=== PATIENT | male | born 1975 | race Caucasian/White ===

== ENCOUNTER 2021-09-12 13:14 | Inpatient (IN) ==
[2021-09-12] MEDS ORDERED: IOPAMIDOL 100 ML BOTTLE IV ONE (13:15)
[2021-09-12] MEDS ORDERED: ONDANSETRON 4 MG/2 ML VIAL IV ONE ×2 (13:20→16:55)
[2021-09-12] MEDS ORDERED: LACTATED RINGERS 1,000 ML IV ONE ×2 (13:20→14:06)
[2021-09-12] MEDS ORDERED: PROMETHAZINE 25 MG/ML VIAL IV ONE (13:28)
[2021-09-12] MEDS ORDERED: diphenhydrAMINE 50 MG/ML VIAL IV ONE (13:28)
[2021-09-12] MEDS ORDERED: HYDROmorphone 0.5 MG/0.5 ML SYRINGE IV ONE (13:28)
--- NOTE | 2021-09-12 13:34 | Emergency Department Note ---
Abdominal Pain HPI General Chief Complaint: Abdominal Pain Stated Complaint: crohns disease Time Seen by Provider: 09/12/21 13:19 Mode of arrival: wheelchair History of Present Illness HPI Narrative: Narrative: 46-year-old male with a history of type 1 diabetes, gastroparesis, Crohn's disease presents to the emergency department with chief complaint of lower abd ominal pain, nausea and vomiting. Patient reports that he has been having abdominal pain for about 6 days nausea and vomiting for a couple. He denies any fevers or chills. He feels like it is his gastroparesis. He has previously seen a cardiology specialist and been diagnosed with Crohn's but denies being on any medications for his Crohn's disease. No prior abdominal surgeries. He has an insulin pump. He takes Zofran as needed but has not had improvement in his symptoms. Related Data Home Medications Medication Instructions Recorded Confirmed insulin aspart U-100 100 unit/mL 10/19/20 10/19/20 subcutaneous solution (Novolog U-100 Insulin aspart) ondansetron 4 mg disintegrating 4 mg translingual Q4 10/19/20 09/12/21 tablet Allergies Allergy/AdvReac Type Severity Reaction Status Date / Time metoclopramide [From Reglan] AdvReac Mild Unknown Verified 09/12/21 19:36 haloperidol [From Haldol] AdvReac Unknown Verified 09/12/21 19:36 Review of Systems ROS ROS Narrative: Narrative: All systems ED: reviewed and negative except as stated. [facility] Narrative Patient History Narrative: Narrative: Medical/Surgical/Family History All Active Problems (Updated 09/13/21 @ 23:02 by Conor Jin MD) COVID-19 (Acute) Diabetic gastroparesis (Acute) Chronic insomnia (Acute) Diabetic gastroparesis (Acute) Patient's noncompliance with other medical treatment and regimen (Acute) census taker current use of insulin (Acute) Chronic depression (Acute) Type 1 diabetes mellitus with diabetic polyneuropathy (Acute) Other fracture of fifth metacarpal bone, left hand, initial encounter for closed fracture (Acute) Diabetes mellitus type 1, uncontrolled (Acute) Type 1 diabetes mellitus with other circulatory complications (Acute) Pneumonitis due to inhalation of oils and essences (Acute) Medical History Chronic depression Chronic insomnia Diabetes mellitus type 1, uncontrolled Diabetic gastroparesis care home current use of insulin Other fracture of fifth metacarpal bone, left hand, initial encounter for closed fracture Patient's noncompliance with other medical treatment and regimen Pneumonitis due to inhalation of oils and essences Type 1 diabetes mellitus with diabetic polyneuropathy Type 1 diabetes mellitus with other circulatory complications Social History Smoking Status: Never smoker Exam Narrative Narrative: Narrative: Vital signs noted General: Awake. Alert. Mild distress actively vomiting HEENT: NCAT PERRL EOMI. No conjunctivitis. Membranes moist. Neck: Supple, trachea midline Cardiovascular: RRR. No murmur. No rubs. No gallops. Respiratory: No respiratory distress. Breath sounds equal. Lungs clear. Gastrointestinal: Soft. Tenderness to palpation in the lower abdominal quadrants there is no guarding rigidity or peritoneal signs Musculoskeletal: No pain. No soft tissue swelling. Good ROM. No signs injury Skin: Warm. Dry. No rash Neurologic: Alert and oriented x3 moves all extremities equally and fully, speech is fluent face is symmetric Course Vital Signs Vital signs: Vital Signs Temperature 96.8 F L 09/12/21 13:16 Pulse Rate 94 H 09/12/21 13:16 Respiratory Rate 20 09/12/21 13:16 Blood Pressure 165/101 09/12/21 13:16 Pulse Oximetry (%) 100 09/12/21 13:16 Oxygen Delivery Method 09/12/21 13:16 Temperature 98.5 F 09/13/21 18:49 Pulse Rate 105 H 09/13/21 18:49 Respiratory Rate 24 H 09/13/21 18:49 Blood Pressure 111/65 09/13/21 18:49 Pulse Oximetry (%) 90 09/13/21 18:49 Oxygen Delivery Method 09/13/21 18:49 [facility] MDM Narrative Medical decision making narrative: Narrative: 46-year-old male with a history of type 1 diabetes and Crohn's disease presents with abdominal pain. While in the emergency department the patient had multiple bouts of nonbloody nonbilious emesis. Patient reports his symptoms today seem consistent with his gastroparesis. CT scan was obtained which shows diffuse abnormality of the colon and terminal ileum consistent with inflammatory bowel disease. Patient's abdominal pain is actually relatively mild it is mostly his intractable nausea and vomiting. Patient was given Zofran x2, Phenergan, Benadryl, Dilaudid, Ativan without any improvement in his symptoms. He continues to retch, dry heave and intermittently vomit while in the emergency department. Patient was given 2 L of IV fluids. His labs show on the venous blood gas and alkalosis suggesting that his vomiting is his primary issue there is not appear to be evidence of DKA patient's bicarb is 21 he does have some ketones. His blood glucose has been in the high 200s while here in the emergency department. Lab Data Result diagrams: 09/12/21 13:31 09/13/21 05:42 Labs: Lab Results 09/12/21 09/12/21 09/12/21 Range/Units 13:31 13:31 13:31 WBC 11.2 H (4.5-11.0) K/mcL RBC 5.42 (4.63-6.08) M/mcL Hgb 15.4 (13.7-17.5) g/dL Hct 46.0 (40.1-51.0) % POC Hct (41-55) MCV 84.9 (80.0-100.0) fL MCH 28.4 (26.0-34.0) pg MCHC 33.5 (31.0-36.0) g/dL RDW 12.6 (11.5-14.5) % Plt Count 300 (140-440) K/mcL MPV 12.4 H (7.4-10.4) fL Immature Gran % (Auto) 0.2 (0.0-0.5) % Neut % (Auto) 71.6 (38.0-78.0) % Lymph % (Auto) 20.4 (15.5-49.0) % [place] % (Auto) 6.6 (1.0-12.0) % Eos % (Auto) 0.6 (0.0-7.0) % Baso % (Auto) 0.6 (0.0-2.0) % Lymph # (Auto) 2.28 (1.50-4.80) K/mcL [place] # (Auto) 0.74 (0.10-0.90) K/mcL Eos # (Auto) 0.07 (0.00-0.70) K/mcL Baso # (Auto) 0.07 (0.00-0.30) K/mcL Immature Gran # 0.02 (0.00-0.05) K/mcl Absolute Neutrophils 8.00 (1.80-8.00) K/mcL ABG Methemoglobin (0.4-1.5) % VBG pH (7.32-7.42) U VBG pCO2 (41.0-51.0) mmHg VBG pO2 (25.0-40.0) mmHg VBG HCO3 (24.0-28.0) mmol/L VBG Total CO2 (25.0-29.0) mmol/L VBG O2 Saturation (40.0-70.0) % VBG Base Excess (-2-3) Carboxyhemoglobin (0.0-1.5) % THgb Total Hemoglobin (13.5-16.5) gm/Dl POC Sodium (133-145) POC Potassium (3.3-5.1) POC Chloride (96-108) POC Total CO2 (22-30) POC BUN (6-20) POC Creatinine (0.6-1.2) POC Glucose (70-105) POC WB Ioniz Calcium (1.16-1.32) Total Bilirubin 0.5 (0.1-1.0) mg/dL Direct Bilirubin < 0.2 (0-0.3) mg/dL AST 21 (<40) U/L ALT 15 (<40) U/L Alkaline Phosphatase 94 (39-117) U/L Total Protein 7.8 (5.9-8.4) gm/dL Albumin 4.5 (3.2-5.2) gm/dL Globulin 3.3 (2.2-3.7) gm/dL Lipase 13 (7-60) U/L Beta-Hydroxybutyrate 0.63 H (<0.27) mmol/L 09/12/21 09/12/21 Range/Units 13:31 13:35 WBC (4.5-11.0) K/mcL RBC (4.63-6.08) M/mcL Hgb (13.7-17.5) g/dL Hct (40.1-51.0) % POC Hct 48.0 (41-55) MCV (80.0-100.0) fL MCH (26.0-34.0) pg MCHC (31.0-36.0) g/dL RDW (11.5-14.5) % Plt Count (140-440) K/mcL MPV (7.4-10.4) fL Immature Gran % (Auto) (0.0-0.5) % Neut % (Auto) (38.0-78.0) % Lymph % (Auto) (15.5-49.0) % [place] % (Auto) (1.0-12.0) % Eos % (Auto) (0.0-7.0) % Baso % (Auto) (0.0-2.0) % Lymph # (Auto) (1.50-4.80) K/mcL [place] # (Auto) (0.10-0.90) K/mcL Eos # (Auto) (0.00-0.70) K/mcL Baso # (Auto) (0.00-0.30) K/mcL Immature Gran # (0.00-0.05) K/mcl Absolute Neutrophils (1.80-8.00) K/mcL ABG Methemoglobin 0.2 L (0.4-1.5) % VBG pH 7.53 H (7.32-7.42) U VBG pCO2 28.3 L (41.0-51.0) mmHg VBG pO2 38.3 (25.0-40.0) mmHg VBG HCO3 23.1 L (24.0-28.0) mmol/L VBG Total CO2 23.9 L (25.0-29.0) mmol/L VBG O2 Saturation 78.1 H (40.0-70.0) % VBG Base Excess 2 (-2-3) Carboxyhemoglobin 4.7 H (0.0-1.5) % THgb Total Hemoglobin 16.6 H (13.5-16.5) gm/Dl POC Sodium 138 (133-145) POC Potassium 4.0 (3.3-5.1) POC Chloride 103 (96-108) POC Total CO2 21.0 L (22-30) POC BUN 17 (6-20) POC Creatinine 1.1 (0.6-1.2) POC Glucose 237 H (70-105) POC WB Ioniz Calcium 1.08 L (1.16-1.32) Total Bilirubin (0.1-1.0) mg/dL Direct Bilirubin (0-0.3) mg/dL AST (<40) U/L ALT (<40) U/L Alkaline Phosphatase (39-117) U/L Total Protein (5.9-8.4) gm/dL Albumin (3.2-5.2) gm/dL Globulin (2.2-3.7) gm/dL Lipase (7-60) U/L Beta-Hydroxybutyrate (<0.27) mmol/L EKG Data EKG #1: EKG attestation: Yes I reviewed and interpreted this EKG., Yes There are no EKG findings of acute coronary syndrome and Yes This EKG will be read by dry transfer worker EKG results narrative: EKG shows sinus arrhythmia with a rate of 88, QTc is 466 no evidence of acute ischemia Discharge Plan Patient/Caregiver Discharge Instructions Pt seen by TESTER ROCKET ENGINE/PA only: No Clinical Impression: Diabetic gastroparesis Patient Disposition: Xfer As Outpt/Obs ([facility]) Condition: Fair Discharge Date/Time: 09/12/21 19:00
[2021-09-12 13:38] LABS: POC Calcium, Ionized 1.08 (1.16-1.32); POC Creatinine 1.1 (0.6-1.2)
[2021-09-12 14:00] LABS: ABG Methemoglobin 0.2 % (0.4-1.5); Total Hemoglobin 16.6 gm/Dl (13.5-16.5); VBG Base Excess 2 (-2-3); VBG HCO3 23.1 mmol/L (24.0-28.0); VBG Oxygen Saturation 78.1 % (40.0-70.0); VBG PCO2 28.3 mmHg (41.0-51.0); VBG PH 7.53 U (7.32-7.42); VBG PO2 38.3 mmHg (25.0-40.0); VBG Total CO2 23.9 mmol/L (25.0-29.0)
[2021-09-12 14:08] LABS: Basophils # (Auto) 0.07 K/mcL (0.00-0.30); Basophils % (Auto) 0.6 % (0.0-2.0); Eosinophils # (Auto) 0.07 K/mcL (0.00-0.70); Eosinophils % (Auto) 0.6 % (0.0-7.0); Hemoglobin 15.4 g/dL (13.7-17.5); Lymphocytes # (Auto) 2.28 K/mcL (1.50-4.80); Lymphocytes % (Auto) 20.4 % (15.5-49.0); Mean Cell Volume 84.9 fL (80.0-100.0); Mean Corpuscular HGB Conc 33.5 g/dL (31.0-36.0); Mean Platelet Volume 12.4 fL (7.4-10.4); Monocytes # (Auto) 0.74 K/mcL (0.10-0.90); Monocytes % (Auto) 6.6 % (1.0-12.0); Neutrophils % (Auto) 71.6 % (38.0-78.0); Platelet Count 300 K/mcL (140-440); RBC 5.42 M/mcL (4.63-6.08); Red Cell Distribution Width 12.6 % (11.5-14.5); WBC 11.2 K/mcL (4.5-11.0)
[2021-09-12 14:47] LABS: Beta Hydroxybutyrate 0.63 mmol/L (<0.27)
[2021-09-12] MEDS ORDERED: LORazepam 2 MG/ML VIAL IV ONE (14:51)
--- NOTE | 2021-09-12 14:57 | Cat Scan Report ---
INDICATION: N/v lower abd pain, hx of crohns COMPARISON: None. TECHNIQUE: Axial images were obtained through the abdomen and pelvis. Sagittally and coronally reformatted images. 80 mL Isovue 370 injected intravenously. Oral contrast material was not administered FINDINGS: Lung bases:Negative. No pulmonary parenchymal nodule. No pleural fluid or pericardial fluid. There appears to be a central venous catheter with its tip in the proximal right atrium. There is coronary artery calcification. This is advanced for age. Liver:Negative. No focal intrahepatic mass. No focal abnormality. Liver contour is smooth. No evidence for cirrhosis Gallbladder, bilary:No calcified gallstones. No gallbladder wall thickening. No dilated intra or extrahepatic bile ducts. Spleen:No splenomegaly. Normal enhancement of splenic and portal veins. Pancreas:Pancreas appears atrophic. No pancreatic mass or evidence for pancreatitis Adrenal glands:Negative Kidneys,ureters,bladder:No solid renal mass. No hydronephrosis. No obstructing or nonobstructing calculi. 7 mm low-density abnormality in the inferior pole of the left kidney. May be a benign cyst although there may be some internal structure. Ultrasound or follow-up CT scan recommended to exclude a small solid lesion No hydroureter. No ureteral calculus. No bladder stone. No detectable bladder mass. Gastrointestinal:Colon is diffusely abnormal. There is mild mural enhancement and mucosal edema. There is prominent vasa recta with increased vascularity to the colon. No colonic stricture or mass identified. This patient has a history of Crohn's disease and the appearance of the colon is consistent with inflammatory bowel disease. There is mucosal edema within the terminal ileum. This is consistent with Crohn's disease. Small bowel is otherwise negative. There is no bowel obstruction. No evidence for fistula or mass Negative stomach and duodenum. No focal abnormality. There is a small hiatal hernia Appendix: The appendix is negative Vascular:There is calcification of the abdominal aorta. This is considered advanced for age. No abdominal aortic aneurysm. Lymphatic:No retroperitoneal or mesenteric adenopathy Mesentery, peritoneum: No free intraperitoneal fluid. No mesenteric or retroperitoneal mass. No intra-abdominal abscess. Reproductive:Prostate is not enlarged. There is calcification within the seminal vesicles and proximal spermatic cord Musculoskeletal:No lumbar compression fractures. Sacrum and pelvis are negative. No hip fracture. No abdominal wall or inguinal hernia IMPRESSION: 1. Diffuse abnormality of the colon and terminal ileum. There is mucosal edema and hyperemia. Appearance is consistent with inflammatory bowel disease 2. No stricture or mass. 3. Atherosclerotic disease is advanced for age 4. Small hiatal hernia The exam was performed using radiation dose optimization techniques including, but not limited to, automated exposure control, adjustment of the mA and/or kV according to patient size and use of iterative reconstruction technique. Interpreted and Authenticated by: Nathan Fragoso 09/12/21
[2021-09-12 16:39] LABS: ALT/SGPT 15 U/L (<40); AST/SGOT 21 U/L (<40); Albumin 4.5 gm/dL (3.2-5.2); Alkaline Phosphatase 94 U/L (39-117); Bilirubin,Direct < 0.2 mg/dL (0-0.3); Bilirubin,Total 0.5 mg/dL (0.1-1.0); Globulin 3.3 gm/dL (2.2-3.7)
--- NOTE | 2021-09-12 17:47 | Internal Med History&Physical ---
HPI History of Present Illness Patient information: Note initiated : 09/12/21 at 5:43 pm Service Date, if different from initiated Date: [as above] Patient: Zana Alex a 46 y/o M admitted on for crohns disease. Chief Complaint: [Intractable nausea and vomiting] Chief complaint: Intractable nausea and vomiting History of present illness: Mr. Alex is a 46 year old M with a past medical history significant for type 1 diabetes mellitus complicated by gastroparesis who presents to the hospital with intractable nausea and vomiting for several days. Of note, the patient does have a insulin pump that has been in place for nearly 2 years. He is followed by Dr. Diaz. The patient did not eat anything unusual recently. He was quite somnolent when I was at the bedside. History is mainly obtained secondhand from his family. They state that he has been unable to eat or drink and they brought him into the hospital as he was having severe retching episodes. On arrival, he was hemodynamically stable and afebrile. Upon review of his labs, there is no evidence of severe electrolyte derangements or acute kidney injury. His nausea cannot be controlled while in the ER, and the hospital service was asked admit the patient for further management and evaluation. Review of Systems All systems: reviewed and no additional remarkable complaints except as stated Constitutional Constitutional: Present as per HPI EENT Eyes: Present as per HPI; Absent blurry vision Cardiovascular Cardiovascular: Present as per HPI; Absent chest pain, dyspnea, dyspnea on exertion, leg edema or palpatations Respiratory Respiratory: Present as per HPI; Absent cough, dyspnea, dyspnea on exertion, wheezing or stridor Gastrointestinal Gastrointestinal: Present as per HPI, nausea and vomiting; Absent abdominal pain, diarrhea, dysphagia, hematemesis or melena Musculoskeletal Musculoskeletal: Present as per HPI; Absent joint swelling, limited range of motion, muscle cramps, muscle weakness or myalgias Integumentary Integumentary: Present as per HPI; Absent erythema, new lesions, rash or wounds Neurological Neurological: Present as per HPI; Absent abnormal gait, behavioral changes, focal weakness, headache(s), loss of vision, numbness, sensory deficit or syncope Endocrine Endocrine: Absent change in body appearance, fatigue or heat intolerance Hematologic/Lymphatic Hematologic/Lymphatic: Present as per HPI PFSH PFSH All Active Problems (System 09/12/21 @ 13:25 by Kenan Ziegler) COVID-19 (Acute) Diabetic gastroparesis (Acute) Chronic insomnia (Acute) Diabetic gastroparesis (Acute) Patient's noncompliance with other medical treatment and regimen (Acute) 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 (Acute) Chronic depression (Acute) Type 1 diabetes mellitus with diabetic polyneuropathy (Acute) Other fracture of fifth metacarpal bone, left hand, initial encounter for closed fracture (Acute) Diabetes mellitus type 1, uncontrolled (Acute) Type 1 diabetes mellitus with other circulatory complications (Acute) Pneumonitis due to inhalation of oils and essences (Acute) Medical History Chronic depression Chronic insomnia Diabetes mellitus type 1, uncontrolled Diabetic gastroparesis detention current use of insulin Other fracture of fifth metacarpal bone, left hand, initial encounter for closed fracture Patient's noncompliance with other medical treatment and regimen Pneumonitis due to inhalation of oils and essences Type 1 diabetes mellitus with diabetic polyneuropathy Type 1 diabetes mellitus with other circulatory complications MEDS/ALLERGIES Home Medications and Allergies Home Medications Medication Instructions Recorded Confirmed Type insulin aspart U-100 100 unit/mL 10/19/20 10/19/20 History subcutaneous solution (Novolog U-100 Insulin aspart) ondansetron 4 mg disintegrating 4 mg PO Q8H PRN nausea and 10/19/20 Rx tablet vomiting #10 tabs ondansetron 4 mg disintegrating 4 mg translingual Q4 10/19/20 10/19/20 History tablet promethazine 25 mg rectal 25 mg CO Q6H PRN nausea/vomiting 10/19/20 10/19/20 History suppository metoclopramide HCl 10 mg tablet 10 mg PO Q6H PRN nausea and 04/16/21 Rx (Reglan) vomiting #14 tabs Allergies Allergy/AdvReac Type Severity Reaction Status Date / Time haloperidol [From Haldol] Allergy Unknown Verified 09/12/21 13:25 metoclopramide [From Reglan] Allergy Unknown Verified 09/12/21 13:25 EXAM Constitutional Vitals: Temp Pulse Resp BP Pulse Ox O2 Del Method 96.8 F L 97 H 20 164/86 100 09/12/21 13:16 09/12/21 17:04 09/12/21 17:04 09/12/21 17:04 09/12/21 17:04 09/12/21 17:04 General appearance: average body habitus Head Head exam: Present atraumatic, normal inspection and normocephalic Eye Eye exam: Present EOMI, normal appearance and PERRL; Absent conjunctival injection ENT ENT exam: Present mucous membranes dry and normal exam Neck Neck exam: Present full ROM; Absent lymphadenopathy Respiratory Respiratory exam: Present normal respiratory exam and CTAB; Absent decreased breath sounds, respiratory distress or wheezes Cardiovascular Cardiovascular exam: Present normal rate and rhythm and RRR; Absent JVD GI/Abdominal GI/Abdominal exam: Present normal bowel sounds and soft; Absent diminished bowel sounds, distended, guarding, mass, rebound or tenderness Neurological Exam Neurological exam: Present alert, CN II-XII intact and oriented X3 Psychiatric Psychiatric exam: Present normal affect and normal mood Skin Skin exam: Present intact and warm; Absent erythema, pallor, petechiae or rash DATA Data Completed and Pending Labs: Labs from last 24 hours 09/12/21 09/12/21 09/12/21 13:35 13:31 13:31 WBC RBC Hgb Hct POC Hct 48.0 MCV MCH MCHC RDW Plt Count MPV Immature Gran % (Auto) Neut % (Auto) Lymph % (Auto) [place] % (Auto) Eos % (Auto) Baso % (Auto) Lymph # (Auto) [place] # (Auto) Eos # (Auto) Baso # (Auto) Immature Gran # Absolute Neutrophils ABG Methemoglobin 0.2 L VBG pH 7.53 H VBG pCO2 28.3 L VBG pO2 38.3 VBG HCO3 23.1 L VBG Total CO2 23.9 L VBG O2 Saturation 78.1 H VBG Base Excess 2 Carboxyhemoglobin 4.7 H Total Hemoglobin 16.6 H POC Sodium 138 POC Potassium 4.0 POC Chloride 103 POC Total CO2 21.0 L POC BUN 17 POC Creatinine 1.1 POC Glucose 237 H POC WB Ioniz Calcium 1.08 L Total Bilirubin Direct Bilirubin AST ALT Alkaline Phosphatase Total Protein Albumin Globulin Lipase Beta-Hydroxybutyrate 0.63 H 09/12/21 09/12/21 13:31 13:31 WBC 11.2 H RBC 5.42 Hgb 15.4 Hct 46.0 POC Hct MCV 84.9 MCH 28.4 MCHC 33.5 RDW 12.6 Plt Count 300 MPV 12.4 H Immature Gran % (Auto) 0.2 Neut % (Auto) 71.6 Lymph % (Auto) 20.4 [place] % (Auto) 6.6 Eos % (Auto) 0.6 Baso % (Auto) 0.6 Lymph # (Auto) 2.28 [place] # (Auto) 0.74 Eos # (Auto) 0.07 Baso # (Auto) 0.07 Immature Gran # 0.02 Absolute Neutrophils 8.00 ABG Methemoglobin VBG pH VBG pCO2 VBG pO2 VBG HCO3 VBG Total CO2 VBG O2 Saturation VBG Base Excess Carboxyhemoglobin Total Hemoglobin POC Sodium POC Potassium POC Chloride POC Total CO2 POC BUN POC Creatinine POC Glucose POC WB Ioniz Calcium Total Bilirubin 0.5 Direct Bilirubin < 0.2 AST 21 ALT 15 Alkaline Phosphatase 94 Total Protein 7.8 Albumin 4.5 Globulin 3.3 Lipase 13 Beta-Hydroxybutyrate A/P Assessment and plan (1) Diabetic gastroparesis: Status: Acute (2) Type 1 diabetes mellitus with diabetic polyneuropathy: Status: Acute Narrative A/P Narrative: The patient is insulin-dependent, and we will have to continue his insulin pump for the time being. He may need to adjust the settings as we will keep him n.p.o. and continue LR 100 cc an hour. The patient will be prescribed IV Reglan, and IV Compazine. I do not believe we have domperidone or erythromycin on formulary. Continue conservative management. Time Spent With Patient Time: Total time spent is greater than 50% in coordination of care (as documented) at patient's floor/unit and/or counseling patient: Total time spent with greater than 50% in coordination of care (as documented) at patient's floor/unit and/or counseling patient:: 50 - 70 minutes
[2021-09-12] MEDS ORDERED: ONDANSETRON 4 MG/2 ML VIAL IV PRN (19:10)
[2021-09-12] MEDS ORDERED: PROCHLORPERAZINE 10 MG/2 ML VIAL IV PRN (19:10)
[2021-09-12] MEDS: LACTATED RINGERS 1,000 ML IV SCH (19:23)
[2021-09-12] MEDS: METOCLOPRAMIDE 10 MG/2 ML VIAL IV SCH ×2 (19:24→23:01)
[2021-09-12] MEDS ORDERED: METOCLOPRAMIDE 10 MG/2 ML VIAL ONE (19:24)
[2021-09-12] MEDS: SENNOSIDES 1 TABLET PO SCH (19:25)
[2021-09-12] MEDS: DOCUSATE SODIUM 100 MG CAPSULE PO SCH (19:25)
[2021-09-12 21:49] LABS: Appearance,Urine CLEAR (Clear); Bilirubin,Urine Negative (Negative); Color,Urine STRAW; Culture Indicated,Urine No; Glucose,Urine (UA) >=500 mg/dL (Negative); Ketones,Urine 80 mg/dL (Negative); Leukocyte Esterase,Urine Negative /uL (Negative); Nitrate,Urine Negative (Negative); Protein,Urine Negative (Negative); Urine Blood Negative (Negative); Urine RBC < 1 /hpf (0-3); Urine Squamous Epithelial Cell 0 /hpf (0-4); Urine WBC 1 /hpf (0-4); Urobilinogen,Urine Negative
[2021-09-12 22:03] LABS: Amphetamine Screen,Urine None detected; Barbiturate Screen,Urine None detected; Benzodiazepines Screen,Urine None detected; Cannabinoid Screen,Urine Suspect Positive; Cocaine Screen,Urine None detected; Opiate Screen,Urine None detected; Oxycodone, Urine Screen None detected; Phencyclidine Screen,Urine None detected
[2021-09-12] MEDS: 0.9 % SODIUM CHLORIDE 10 ML SYRINGE IV SCH (22:11)
[2021-09-12] MEDS: KETOROLAC 30 MG/ML VIAL IV PRN (22:19)
[2021-09-12] MEDS ORDERED: HALOPERIDOL LACTATE 5 MG/ML VIAL IV ONE (22:45)
[2021-09-12] MEDS: PROMETHAZINE 25 MG/ML VIAL IV PRN (23:01)
[2021-09-12] MEDS ORDERED: PROMETHAZINE 25 MG/ML VIAL ONE (23:03)
[2021-09-12] MEDS ORDERED: HALOPERIDOL LACTATE 5 MG/ML VIAL ONE (23:08)
[2021-09-13] MEDS: ONDANSETRON 4 MG/2 ML VIAL IV PRN (01:43)
[2021-09-13] MEDS ORDERED: ONDANSETRON 4 MG/2 ML VIAL ONE (01:49)
[2021-09-13] MEDS: KETOROLAC 30 MG/ML VIAL IV PRN ×3 (05:03→23:44)
[2021-09-13] MEDS: 0.9 % SODIUM CHLORIDE 10 ML SYRINGE IV SCH ×3 (05:04→22:44)
[2021-09-13] MEDS: LACTATED RINGERS 1,000 ML IV SCH ×2 (05:04→16:26)
[2021-09-13] MEDS: METOCLOPRAMIDE 10 MG/2 ML VIAL IV SCH ×4 (05:04→23:44)
[2021-09-13 07:48] LABS: Blood Urea Nitrogen 18 mg/dL (6-20); Calcium 9.3 mg/dL (8.6-10.4); Carbon Dioxide 16 mmol/L (22-30); Chloride 100 mmol/L (96-108); Glomerular Filtration Rate 72; Glucose 330 mg/dL (70-105); Phosphorous 3.3 mg/dL (2.5-4.5)
[2021-09-13] MEDS: DOCUSATE SODIUM 100 MG CAPSULE PO SCH ×2 (08:59→22:43)
[2021-09-13] MEDS: PROMETHAZINE 25 MG/ML VIAL IV PRN ×2 (10:09→16:32)
--- NOTE | 2021-09-13 10:16 | EKG ---
[facility] Test Date: 2021-09-12 Pat Name: Zana Alex Department: ED Room: Gender: Male Small Business Consultant: HS : [id number] Requested By: Conor Jin Order Number: [id number] Reading MD: Matthew Patiño Measurements Intervals [place] Rate: 88 P: 33 FL: 149 QRS: 33 QRSD: 163 T: 50 QT: 385 QTc: 466 Interpretive Statements Sinus arrhythmia Baseline wander Electronically Signed On 09-13-2021 10:16:20 PDT by Matthew Patiño /store/[email or web address]/[id number]
--- NOTE | 2021-09-13 11:23 | Internal Med Progress Note ---
SUBJECTIVE Subjective Patient information: Note initiated : 09/13/21 at 11:21 am Service Date, if different from initiated Date: [] Patient: Zana Alex 46 y/o M admitted on 09/12/21 for gastroparesis. Chief Complaint: [Intractable nausea and vomiting] Principal diagnosis: Diabetic gastroparesis Interval history: The patient was resting comfortably in bed. He is feeling much better. He has received multiple antiemetics and even Haldol IV. He would like to advance his diet to clear liquid. Constitutional Vitals: Vital Signs Temp Pulse Resp BP Pulse Ox O2 Del Method 99.0 F 111 H 16 154/83 95 09/13/21 07:41 09/13/21 07:41 09/13/21 07:41 09/13/21 07:41 09/13/21 07:41 09/13/21 07:41 Period Temp Pulse Resp BP Sys/Mercer Pulse Ox O2 Del Method O2 Flow Rate Last 24 Hr 96.8 F-99.0 F 89-113 16-20 92-165/49-101 92-100 Room Air-Room Air Intake and Output 09/12/21 09/13/21 09/13/21 21:59 05:59 13:59 Intake Total 1999 968 Output Total 400 Balance 1600 968 Weight 94.347 kg Intake & Output: Intake & Output 09/12/21 09/13/21 09/13/21 21:59 05:59 13:59 Intake Total 2000 968 Output Total 400 Balance 1600 968 Weight 94.347 kg Intake: IV 2000 968 Lactated Ringers 1,000 ml @ 100 2000 968 mls/hr IV .Q10H JOLIE Rx#: [id number] Oral 0 Output: Void Amount 400 Other: Urine Appearance Clear Urine Color Dark Yellow # Voids 1 Head Head exam: Present atraumatic and normal inspection Eye Eye exam: Present normal appearance ENT ENT exam: Present mucous membranes moist, normal exam and normal external ear exam Neck Neck exam: Present normal inspection Respiratory Respiratory exam: Present normal respiratory exam Cardiovascular Cardiovascular exam: Present normal rate and rhythm GI/Abdominal GI/Abdominal exam: Present normal bowel sounds Back Exam Back exam: Present normal inspection Neurological Exam Neurological exam: Present alert and oriented X3 Skin Skin exam: Present intact and warm OBJ DATA Labs CBC & Chem 7: 09/12/21 13:31 09/13/21 05:42 Labs: Abnormal Lab Results 09/13/21 09/12/21 09/12/21 05:42 21:00 21:00 WBC MPV ABG Methemoglobin VBG pH VBG pCO2 VBG HCO3 VBG Total CO2 VBG O2 Saturation Carboxyhemoglobin Total Hemoglobin Carbon Dioxide 16 L POC Total CO2 Anion Gap 21.0 H Glucose 330 H POC Glucose POC WB Ioniz Calcium Beta-Hydroxybutyrate Urine Glucose (UA) >=500 A Urine Ketones 80 A U Marijuana (THC) Screen Suspect positive A 09/12/21 09/12/21 09/12/21 13:35 13:31 13:31 WBC MPV ABG Methemoglobin 0.2 L VBG pH 7.53 H VBG pCO2 28.3 L VBG HCO3 23.1 L VBG Total CO2 23.9 L VBG O2 Saturation 78.1 H Carboxyhemoglobin 4.7 H Total Hemoglobin 16.6 H Carbon Dioxide POC Total CO2 21.0 L Anion Gap Glucose POC Glucose 237 H POC WB Ioniz Calcium 1.08 L Beta-Hydroxybutyrate 0.63 H Urine Glucose (UA) Urine Ketones U Marijuana (THC) Screen 09/12/21 13:31 WBC 11.2 H MPV 12.4 H ABG Methemoglobin VBG pH VBG pCO2 VBG HCO3 VBG Total CO2 VBG O2 Saturation Carboxyhemoglobin Total Hemoglobin Carbon Dioxide POC Total CO2 Anion Gap Glucose POC Glucose POC WB Ioniz Calcium Beta-Hydroxybutyrate Urine Glucose (UA) Urine Ketones U Marijuana (THC) Screen Meds: Medications Docusate Sodium (Docusate Sodium 100 Mg Capsule) 100 mg PO BID [facility] Last Admin: 09/13/21 08:59 Dose: Not Given Lactated Ringer's (Lactated Ringers) 1,000 mls @ 100 mls/hr IV .Q10H [facility] Last Admin: 09/13/21 05:04 Dose: 100 mls/hr Ketorolac Tromethamine (Ketorolac 30 Mg/Ml Vial) 30 mg IV Q6HP PRN; Protocol PRN Reason: Per Pain Protocol Stop: 09/14/21 17:34 Last Admin: 09/13/21 05:03 Dose: 30 mg Metoclopramide HCl (Metoclopramide 10 Mg/2 Ml Vial) 10 mg IV Q6 [facility] Last Admin: 09/13/21 05:04 Dose: 10 mg Ondansetron HCl (Ondansetron 4 Mg/2 Ml Vial) 8 mg IV Q6HP PRN PRN Reason: Nausea And Vomiting Last Admin: 09/13/21 01:43 Dose: 8 mg Prochlorperazine (Prochlorperazine 10 Mg/2 Ml Vial) 5 mg IV Q4HP PRN PRN Reason: Nausea And Vomiting Last Admin: 09/12/21 22:19 Dose: 5 mg Promethazine HCl (Promethazine 25 Mg/Ml Vial) 25 mg IV Q4HP PRN PRN Reason: Nausea And Vomiting Last Admin: 09/13/21 10:09 Dose: 25 mg Senna (Sennosides 1 Tablet) 2 tab PO HS JOLIE Last Admin: 09/12/21 19:25 Dose: Not Given Sodium Chloride (0.9 % Sodium Chloride 10 Ml Syringe) 10 ml IV Q8 JOLIE Last Admin: 09/13/21 05:04 Dose: Not Given ABG Interpretation ABG results: 09/12/21 13:31 ABG Methemoglobin 0.2 L VBG pH 7.53 H VBG pCO2 28.3 L VBG pO2 38.3 VBG HCO3 23.1 L VBG Total CO2 23.9 L VBG O2 Saturation 78.1 H VBG Base Excess 2 A/P Assessment and plan (1) Diabetic gastroparesis: Status: Acute (2) Type 1 diabetes mellitus with diabetic polyneuropathy: Status: Acute Narrative A/P Narrative: The patient is insulin-dependent, and we will have to continue his insulin pump for the time being. He may need to adjust the settings as we will keep him n.p.o. and continue LR 100 cc an hour. The patient will be prescribed IV Reglan, and IV Compazine. I do not believe we have domperidone or erythromycin on formulary. Continue conservative management. 09/13: Continue Zofran IV, Compazine IV, Phenergan IV, and he did receive Haldol 5 mg IV x1 yesterday evening. We will continue IV fluids and advance his diet as tolerated. Time Spent With Patient Time: Total time spent is greater than 50% in coordination of care (as documented) at patient's floor/unit and/or counseling patient: Total time spent with greater than 50% in coordination of care (as documented) at patient's floor/unit and/or counseling patient:: 25 - 35 minutes QUALITY VTE Deep Vein Thrombosis/Pulmonary Embolism Present on Admission: No
[2021-09-13] MEDS ORDERED: DEXTROSE 31 GM ORAL.SUSP PO PRN (18:37)
[2021-09-13] MEDS ORDERED: DEXTROSE 50% 50 ML VIAL IV PRN (18:37)
[2021-09-13] MEDS ORDERED: INSULIN LISPRO 1 UNIT/0.01 ML UNIT SQ SCH (21:00)
[2021-09-13] MEDS: INSULIN LISPRO 1 UNIT/0.01 ML UNIT SQ SCH (22:44)
[2021-09-13] MEDS: SENNOSIDES 1 TABLET PO SCH (22:44)
[2021-09-14] MEDS: ONDANSETRON 4 MG/2 ML VIAL IV PRN (04:38)
[2021-09-14] MEDS: 0.9 % SODIUM CHLORIDE 10 ML SYRINGE IV SCH (04:40)
[2021-09-14] MEDS: LACTATED RINGERS 1,000 ML IV SCH (04:40)
[2021-09-14] MEDS: METOCLOPRAMIDE 10 MG/2 ML VIAL IV SCH (05:09)
[2021-09-14] MEDS: KETOROLAC 30 MG/ML VIAL IV PRN (05:09)
[2021-09-14] MEDS: INSULIN LISPRO 1 UNIT/0.01 ML UNIT SQ SCH (07:42)
[2021-09-14] MEDS: DOCUSATE SODIUM 100 MG CAPSULE PO SCH (09:09)
--- NOTE | 2021-09-14 09:24 | Discharge Summary ---
Discharge Provider Provider IMPORTANT FOLLOW-UP INFORMATION FOR PCP: 1. Referral to motility clinic Patient information: Note initiated : 09/14/21 at 9:24 am Service Date, if different from initiated Date: [] Patient: Zana Alex 46 y/o M admitted on 09/12/21 for crohns disease. Chief Complaint: [] Date of admission: 09/12/21 19:00 Discharge date: 09/14/21 Primary care physician: Kameron Moon Admitting clinician: Jazmin Hua Consults: 09/12/21 17:08 Consult to Physician [CONS] Stat Comment: Consulting Provider: Jazmin Hua Reason For Exam: Physician to Consult Attending physician on discharge: Jazmin Hua COURSE Hospital Course Hospital course: Chief complaint: Intractable nausea and vomiting History of present illness: Mr. Alex is a 46 year old M with a past medical history significant for type 1 diabetes mellitus complicated by gastroparesis who presents to the hospital with intractable nausea and vomiting for several days. Of note, the patient does have a insulin pump that has been in place for nearly 2 years. He is followed by Dr. Diaz. The patient did not eat anything unusual recently. He was quite somnolent when I was at the bedside. History is mainly obtained secondhand from his family. They state that he has been unable to eat or drink and they brought him into the hospital as he was having severe retching episodes. On arrival, he was hemodynamically stable and afebrile. Upon review of his labs, there is no evidence of severe electrolyte derangements or acute kidney injury. His nausea cannot be controlled while in the ER, and the hospital service was asked admit the patient for further management and evaluation. The patient is insulin-dependent, and we will have to continue his insulin pump for the time being. He may need to adjust the settings as we will keep him n.p.o. and continue LR 100 cc an hour. The patient will be prescribed IV Reglan, and IV Compazine. I do not believe we have domperidone or erythromycin on formulary. Continue conservative management. 09/13: Continue Zofran IV, Compazine IV, Phenergan IV, and he did receive Haldol 5 mg IV x1 yesterday evening. We will continue IV fluids and advance his diet as tolerated. 09/14: With bowel rest, IV fluids, and multiple IV antiemetic medications, the patient is feeling much better after 48 hours. He tolerated a clear liquid diet and is eager to return home. I suggested follow-up at the [facility] motility clinic. Of note, the patient does have an insulin pump. He will follow-up with his primary care physician within 1 week's time. He has been prescribed p.o. Zofran and Phenergan suppository. Discharge diagnosis: Diabetic gastroparesis, severe Time Spent with Patient Time attestation: Total time spent providing and/or coordinating discharge services: Time spent: Greater than 30 minutes EXAM Constitutional Vitals: Temp Pulse Resp BP Pulse Ox O2 Del Method 98.2 F 104 H 16 153/89 95 09/14/21 08:00 09/14/21 08:00 09/14/21 08:00 09/14/21 08:00 09/14/21 08:00 09/14/21 08:00 General appearance: average body habitus Head Head exam: Present atraumatic, normal inspection and normocephalic Eye Eye exam: Present EOMI, normal appearance and PERRL; Absent conjunctival injection ENT ENT exam: Present normal exam; Absent mucous membranes dry Neck Neck exam: Present full ROM; Absent lymphadenopathy Respiratory Respiratory exam: Present normal respiratory exam and CTAB; Absent decreased breath sounds, respiratory distress or wheezes Cardiovascular Cardiovascular exam: Present normal rate and rhythm and RRR; Absent JVD GI/Abdominal GI/Abdominal exam: Present normal bowel sounds and soft; Absent diminished bowel sounds, distended, guarding, mass, rebound or tenderness Neurological Exam Neurological exam: Present alert, CN II-XII intact and oriented X3 Psychiatric Psychiatric exam: Present normal affect and normal mood Skin Skin exam: Present intact and warm; Absent erythema, pallor, petechiae or rash Discharge Plan Patient/Caregiver Discharge Instructions Activity: increase activity as tolerated Diet: Clear Liquid Prescriptions: New ondansetron HCl 8 mg tablet 8 mg PO QD-BID PRN (Reason: nausea and vomiting) 2 Days Qty: 20 0RF promethazine 50 mg suppository 50 mg OK QHS PRN (Reason: gastrointestinal spasms or cramping) Qty: 12 0RF Continued insulin aspart U-100 [Novolog U-100 Insulin aspart] 100 unit/mL solution Label Comments: VIA PUMP MN 0.4 UNITS CORRECTION FACTOR 1/50 CARB RATIO 1/15 AND (total daily dose of 60 UNITS) Discontinued ondansetron 4 mg tablet,disintegrating 4 mg translingual Q4 Label Comments: DISSOLVE ONE TABLET IN MOUTH EVERY 6 HOURS NEEDED FOR FOR NAUSEA AND VOMITING Follow Up Plan Follow up with: Kameron Moon DO [Primary Care Provider] - Patient Disposition: Home, Self-Care Prognosis: Fair Rehab Potential: Good I certify that the patient requires SNF services: No Overall status at discharge: patient is progressing back to baseline Discharge Orders: Discharge Order (Routine); Ordered 09/14/21 Ordered By: Jazmin HICKS VTE Deep Vein Thrombosis/Pulmonary Embolism Present on Admission: No
[2021-09-14] MEDS ORDERED: ONDANSETRON 4 MG ODT TABLET SL PRN (09:34)
[2021-09-14] MEDS ORDERED: ONDANSETRON 4 MG ODT TABLET ONE (09:53)
[2021-09-19 04:57] LABS: Cannabinoid Confirmation Positive
== END 2021-09-14 11:30 | disposition home or self-care (01) | DRG 74 ==
LOC: EDBD → MERGE 13:14 → ED 13:14 → MEDSUR 19:00
PROVIDERS: ADMIT Student in an Organized Health Care Education/Training Program; ATTEND Student in an Organized Health Care Education/Training Program